=== PATIENT | female | born 1935 | race Caucasian/White ===

== ENCOUNTER → 2018-01-27 | Outpatient (CLI) | payer MEDICARE ==
[~2018-01-27] MED LIST: ASPI-555 PO; CALCIUM + D PO; CARV12.511 PO; CELE200C PO; CLOP75TA32 PO; LEVO100T12 PO; MULTIVITAMIN PO; OMEP20CA4 PO; ROSU20TA PO; [UNRECOGNIZED DRUG - OTHER] PO
== END | disposition home or self-care (01) ==
LOC: SHCH 08:14
PROVIDERS: ATTEND Internal Medicine Cardiovascular Disease
DX: I10 Essential (primary) hypertension (principal)
CPT/HCPCS: 93975

== ENCOUNTER → 2018-01-30 | Outpatient (CLI) | payer MEDICARE ==
[~2018-01-30] MED LIST changes: +ISOVUE-370 50ML VIAL IV ONE
== END | disposition home or self-care (01) ==
LOC: OIH 08:29
PROVIDERS: ATTEND Internal Medicine Cardiovascular Disease
DX: I65.22 Occlusion and stenosis of left carotid artery (principal); I67.1 Cerebral aneurysm, nonruptured; I67.2 Cerebral atherosclerosis
CPT/HCPCS: 70496; 70498; Q9967

== ENCOUNTER → 2018-11-25 | Outpatient (CLI) | payer MEDICARE ==
[~2018-11-25] MED LIST changes: -ISOVUE-370 50ML VIAL IV ONE; -ROSU20TA PO; +ROSU20TA23 PO
== END | disposition home or self-care (01) ==
LOC: SHCH 14:57
PROVIDERS: ATTEND Internal Medicine Cardiovascular Disease
DX: I65.23 Occlusion and stenosis of bilateral carotid arteries (principal)
CPT/HCPCS: 93880

== ENCOUNTER → 2020-08-23 | Outpatient (CLI) | payer MEDICARE ==
[~2020-08-23] MED LIST changes: -ASPI-555 PO; +ASPI-556 PO
== END | disposition home or self-care (01) ==
LOC: SHCH 13:21
PROVIDERS: ATTEND Internal Medicine Cardiovascular Disease
DX: R09.89 Other specified symptoms and signs involving the circulatory and respiratory systems (principal); I65.23 Occlusion and stenosis of bilateral carotid arteries
CPT/HCPCS: 93306; 93356; 93880

== ENCOUNTER → 2021-02-28 | Outpatient (CLI) | payer MEDICARE | END | disposition home or self-care (01) | LOC: SHCH 11:20 | PROVIDERS: ATTEND Internal Medicine Cardiovascular Disease | DX: I65.23 Occlusion and stenosis of bilateral carotid arteries (principal) | CPT/HCPCS: 93880 ==

== ENCOUNTER → 2022-06-07 | Outpatient (CLI) | payer MEDICARE | END | disposition home or self-care (01) | LOC: SHCH 09:28 | PROVIDERS: ATTEND Internal Medicine Cardiovascular Disease | DX: I65.23 Occlusion and stenosis of bilateral carotid arteries (principal); I25.810 Atherosclerosis of coronary artery bypass graft(s) without angina pectoris; I11.9 Hypertensive heart disease without heart failure; I25.10 Atherosclerotic heart disease of native coronary artery without angina pectoris | CPT/HCPCS: 93306; 93880 ==

== ENCOUNTER → 2022-06-19 | Outpatient (CLI) | payer MEDICARE | END | disposition home or self-care (01) | LOC: LAB 11:32 | PROVIDERS: ATTEND Internal Medicine Cardiovascular Disease | DX: I10 Essential (primary) hypertension (principal); I65.23 Occlusion and stenosis of bilateral carotid arteries | CPT/HCPCS: 36415; 83880 ==